=== PATIENT | male | born 1955 | race Caucasian/White ===

== ENCOUNTER 2019-04-12 05:34 | Emergency (ER) | payer MEDICARE ==
[~2019-04-12] VITALS: Ht 175.3 cm; Wt 82.9 kg
[2019-04-12 05:50] VITALS: BP 106/65
[2019-04-12] MEDS ORDERED: SPIR50 PO (05:50)
[2019-04-12] MEDS ORDERED: LACT30L PO (05:50)
[2019-04-12] MEDS ORDERED: FOLI1 PO (05:50)
== END 2019-04-12 06:50 | disposition home or self-care (01) ==
LOC: EDBD 05:34 → EMS 05:34
DX: T83.9XXA Unspecified complication of genitourinary prosthetic device, implant and graft, initial encounter (principal); Y84.6 Urinary catheterization as the cause of abnormal reaction of the patient, or of later complication, without mention of misadventure at the time of the procedure
CPT/HCPCS: 51702